=== PATIENT | female | born 1980 | race African-American/Black ===

== ENCOUNTER 2017-09-15 20:22 | Emergency (ER) | payer OTHER ==
[~2017-09-15] VITALS: Ht 170.2 cm; Wt 59.0 kg
[~2017-09-15 20:22] MED LIST: CYCLOBENZAPRINE10 MG ORAL; IBUPROFEN600 MG ORAL; IBUPROFEN800 MG ORAL; NORCO 5-325 TA1 EAC1 ORAL; OXYCODONE-ACET1 EAC3 ORAL; PERCOCET 5-3251 EACH ORAL
[2017-09-15] MEDS ORDERED: Lidocaine 1% 10mg/ml/Epi 0.005mg/ml 30ml vial INJ ONE (22:00)
[2017-09-15] MEDS ORDERED: COLACE100 MG ORAL (22:02)
[2017-09-15] MEDS ORDERED: IBUPROFEN600 MG ORAL (22:02)
--- NOTE | 2017-09-15 22:38 | Emergency Room Report ---
History of Present Illness General Chief Complaint: General Complaint Source: Patient Present Illness HPI 37-year-old female, presenting with painful hemorrhoids for 3 days. Patient states that she also saw them bleeding today. Denies any constipation or hard stools. No other complaints Allergies: Coded Allergies: No Known Allergies (Unverified , 01/08/15) Patient History Past Medical History: see triage record Past Surgical History: none Pertinent Family History: none Last Menstrual Period: Aug Reviewed Nursing Documentation: PMH: Agreed, PSxH: Agreed Nursing Documentation-PMH Hx Gastrointestinal Problems: Yes - HEMORRHOIDS Review of Systems All Other Systems: negative except mentioned in HPI Physical Exam Vital Signs Date Time Temp Pulse Resp B/P (MAP) Pulse Ox O2 Delivery O2 Flow Rate FiO2 09/15/17 21:22 98.0 61 18 116/76 100 Room Air 98.1 Sp02 EP Interpretation: reviewed, normal General Appearance: alert, GCS 15, non-toxic, moderate distress Head: normocephalic, atraumatic Eyes: bilateral eye normal inspection, bilateral eye PERRL, bilateral eye EOMI ENT: normal ENT inspection, normal pharynx, normal voice, moist mucus membranes Neck: normal inspection, full range of motion, supple Respiratory: normal inspection, lungs clear, normal breath sounds, no respiratory distress, no retraction, no wheezing, speaking full sentences, chest symmetrical Cardiovascular #1: normal inspection, regular rate, rhythm, normal capillary refill Cardiovascular #2: 2+ radial (R), 2+ radial (L) Gastrointestinal: normal inspection, non tender, soft, non-distended, no guarding Rectal: other - Thrombosed hemorrhoid noted 1.5 x 1.5 cm, TTP Musculoskeletal: normal inspection, back normal, normal range of motion, non- tender Neurologic: normal inspection, alert, oriented x3, responsive, motor strength/ tone normal, sensory intact, normal gait, speech normal Psychiatric: normal inspection, judgement/insight normal, memory normal Skin: normal inspection, normal color, no rash, warm/dry, well hydrated, normal turgor Procedures Incision and Drainage Incision and Drainage : Consent: Verbal Blade Size: 11 I & D Procedure: betadine prep, sterile drapes applied, sterile dressing applied, gauze wick placed Wound Location: other - thrombosed hemorrhoid Wound Length (cm): 1 Irrigated w/ Saline (ccs): 8 Anesthesia: Lidocaine w/ Epi Patient Tolerated: Well Complications: None Medical Decision Making Diagnostic Impression: Primary Impression: Thrombosed hemorrhoids ER Course 37-year-old female with thrombosed hemorrhoid DDX: Thrombosed hemorrhoid Plan: Excision of thrombosed hemorrhoid ER course: Patient has remained stable during ED stay. Excision and removal of thrombosed hemorrhoid performed without difficulty Disposition: Patient is to be discharged to home. Prescriptions given are Colace and Motrin. Also instructed to take sitz bath Patient is instructed to follow up with their primary care doctor within 5 days. Please note that this Emergency Department Report was dictated using [employer] technology software, occasionally this can lead to erroneous entry secondary to interpretation by the dictation equipment Last Vital Signs Date Time Temp Pulse Resp B/P (MAP) Pulse Ox O2 Delivery O2 Flow Rate FiO2 09/15/17 21:22 98.0 61 18 116/76 100 Room Air 98.1 Disposition: HOME, SELF-CARE Condition: Improved Scripts Docusate Sodium* (COLACE*) 100 Mg Capsule 100 MG ORAL THREE TIMES A DAY, #60 CAP Prov: Bella Hatfield M.D. 09/15/17 Ibuprofen* (MOTRIN*) 600 Mg Tablet 600 MG ORAL Q8H Y for For Pain, #30 TAB 0 Refills Prov: Bella Hatfield M.D. 09/15/17 Patient Instructions: Hemorrhoids, [id number] Bella Hatfield M.D. Sep 15, 2017 22:38
[2017-09-15 23:32] VITALS: BP 120/78
== END 2017-09-15 23:35 | disposition home or self-care (01) ==
LOC: EMR 21:40
DX: K64.5 Perianal venous thrombosis (principal)
CPT/HCPCS: 10060; 99283